=== PATIENT | male | born 1955 | race Caucasian/White ===

== ENCOUNTER → 2016-08-12 | Day surgery (SDC) | payer MEDICARE, OTHER ==
[~2016-08-12] MED LIST: ADVAI500I PO; ALBU1AER INH; ASPI81TA82 PO; ATRO17AE INH; CETI10 PO; CITA-48 PO; DOXA1 PO; ENOX40P SQ; FLON0.053; FURO20TA PO; GABA600T PO; GLUCTAB PO; LACTATED RINGER'S 1000 ML INJ 1,000 ML ONE; LIDOCAINE HCL 1% PF 30 ML VIAL ONE; METO25CR PO; MIDAZOLAM HCL 2 MG/2 ML VIAL ONE; OXYC1SOL5 PO; PANT40IN3 PO; PROPOFOL 200 MG/20 ML AMP IV ONE; SPIRCAP INH; Z.0.COMMODE-3:1; Z.0.WALKERFRONT; ceFAZolin INJ 1,000 MG VIAL ONE
--- NOTE | 2016-08-12 10:22 | PD.OP ---
cc: Cali Tinajero Jr., MD Operative Report Date of Surgery: Aug 12, 2016 Preoperative Diagnosis: right index trigger finger Postoperative Diagnosis: same Procedure: right index trigger finger release Anesthesia: LMA Surgeon: Cali Tinajero Weight Loss Physician(s): staff Resident Surgeon: none Operation and Findings: Patient was seen and evaluated preoperatively and found to have a debilitating and painful trigger finger at the RIGHT INDEX finger, that has so far failed nonoperative treatment. Informed consent was obtained after detailed discussion of risk and benefits including bleeding, infection, injury to arteries, nerves, and blood vessels, weakness and numbness of hand, and tendon rupture. Informed consent was obtained. Patient received IV antibiotics prior to incision. Timeout procedure was performed. Operative extremity was prepped with alcohol followed by Hibiclens and draped usual sterile fashion. A 1 cm transverse incision was made along the proximal palmar crease and carried by sharp dissection through the subcutaneous tissue. Blunt dissection was used to expose the flexor tendon and the proximal edge of the A1 ramandeep. Using a #11 knife blade, the A1 ramandeep was incised from proximal to distal. The finger was then put through a full range of motion with no triggering and I could see the hyperthrophic lump on the flexor tendon appear and disappear, and there was no triggering. The wound was irrigated copiously with normal saline and the incision closed with interrupted simple sutures of 2-0 nylon. A sterile pressure dressing was placed over the hand, and the tourniquet was deflated. The patient was awakened and returned to recovery in apparently good condition. POSTP-OP PLAN OF ACTIVITY Antibiotics: none Antiocoagulation: none Weight bearing status: WBAT Dressing: Do not remove until outpatient clinic visit Dispo: expected discharge TODAY home from PACU Cali Tinajero Jr., MD Aug 12, 2016 10:22
== END | disposition home or self-care (01) ==
LOC: ESDC 07:41
PROVIDERS: ATTEND Orthopaedic Surgery
DX: M65.321 Trigger finger, right index finger (principal)
CPT/HCPCS: 01810; 26055; J0690; J2250; J3010; J7120